=== PATIENT | male | born 2000 | race Caucasian/White ===

== ENCOUNTER → 2021-01-21 11:15 | Outpatient (BNVA) | payer OTHER, SELFPAY | PROVIDERS: Visit Provider Physician Assistant Medical | DX: S39.012A Strain of muscle, fascia and tendon of lower back, initial encounter (principal); X50.3XXA Overexertion from repetitive movements, initial encounter | CPT/HCPCS: 99203 ==

== ENCOUNTER → 2021-01-26 10:55 | Outpatient (BNVA) | payer OTHER, SELFPAY | PROVIDERS: Visit Provider Physician Assistant Medical | DX: S39.012A Strain of muscle, fascia and tendon of lower back, initial encounter (principal); X58.XXXA Exposure to other specified factors, initial encounter | CPT/HCPCS: 72100; 99214 ==

== ENCOUNTER → 2021-02-03 10:52 | Outpatient (BNVA) | payer OTHER, SELFPAY | PROVIDERS: Visit Provider Physician Assistant Medical | DX: S39.012A Strain of muscle, fascia and tendon of lower back, initial encounter (principal); X58.XXXA Exposure to other specified factors, initial encounter | CPT/HCPCS: 99213 ==

== ENCOUNTER → 2021-02-10 10:44 | Outpatient (BNVA) | payer OTHER, SELFPAY | PROVIDERS: Visit Provider Physician Assistant Medical | DX: S39.012D Strain of muscle, fascia and tendon of lower back, subsequent encounter (principal); X58.XXXD Exposure to other specified factors, subsequent encounter | CPT/HCPCS: 99213 ==

== ENCOUNTER → 2021-02-23 13:08 | Outpatient (BNVA) | payer OTHER, SELFPAY | PROVIDERS: Visit Provider Physician Assistant Medical | DX: S39.012D Strain of muscle, fascia and tendon of lower back, subsequent encounter (principal); S29.012D Strain of muscle and tendon of back wall of thorax, subsequent encounter; X58.XXXD Exposure to other specified factors, subsequent encounter | CPT/HCPCS: 99213 ==

== ENCOUNTER → 2021-03-03 12:50 | Outpatient (BNVA) | payer OTHER, SELFPAY | PROVIDERS: Visit Provider Physician Assistant Medical | DX: S29.012D Strain of muscle and tendon of back wall of thorax, subsequent encounter (principal); S39.012D Strain of muscle, fascia and tendon of lower back, subsequent encounter; X58.XXXD Exposure to other specified factors, subsequent encounter | CPT/HCPCS: 99213 ==

== ENCOUNTER → 2021-03-19 10:49 | Outpatient (BNVA) | payer OTHER, SELFPAY | PROVIDERS: Visit Provider Physician Assistant Medical | DX: S29.012D Strain of muscle and tendon of back wall of thorax, subsequent encounter (principal); S39.012D Strain of muscle, fascia and tendon of lower back, subsequent encounter; S16.1XXD Strain of muscle, fascia and tendon at neck level, subsequent encounter; S46.819D Strain of other muscles, fascia and tendons at shoulder and upper arm level, unspecified arm, subsequent encounter; X58.XXXD Exposure to other specified factors, subsequent encounter | CPT/HCPCS: 72072; 99214 ==

== ENCOUNTER 2021-03-19 12:00 | Outpatient (RCR) | payer OTHER, SELFPAY ==
--- NOTE | 2021-02-06 14:08 | MHC.PT.EP ---
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 FUNCTIONAL LIMITATIONS INCLUDE DECR SITTING, STANDING, WALKING > 1 HR, DRIVING > 25 MINUTES, MOVING FURNITURE, OR WORK TASKS- HE HAS BEEN OOW SINCE INJURY. Pt WOULD BENEFIT FROM PT TO ADDRESS THE ABOVE POSTURAL SYNDROME AND DEV HEP FOR SX MGMT. Frequency and Duration: The patient will be seen 2x WK x 4 WKS Short Term Goals: DECR Pt'S LS PAIN TO 2-3/10 W REG ADLS IN 2 WKS IMPROVE HIP/ TRUNK FLEXIB AND FUNCT SQUAT MECH IN 2 WKS Pt INDEP SELF-CORRECT POSTURE IN 1 WK Senior Care Goals: Pt INDEP HEP AND SX MGMT IN 4 WKS OSWESTRY SCORE IMPROVED BY AT LEAST 8 POINTS (AT EVAL 19/50) IN 4 WKS Pt DEMON 3:3 WORK OR ADL SIMUL W PROPER MECH IN 4WKS Treatment Plan: Modalities to reduce pain, spasms and effusion. Manual therapy to restore motion and function. Therapeutic exercise to improve strength and flexibility. Neuromuscular re-education for posture and balance. Therapeutic activities to return to functional activities of daily living. Electronically signed by: Rosanna Quintero,PT Please sign and return to therapist. Thank you for your referral.
== END 2021-05-22 07:17 | disposition home or self-care (01) ==
LOC: HO.PT 12:00
PROVIDERS: Visit Provider Physician Assistant Medical
DX: S39.012D Strain of muscle, fascia and tendon of lower back, subsequent encounter (principal); M62.830 Muscle spasm of back
CPT/HCPCS: 97110; 97112; 97140; 97161; 97530

== ENCOUNTER → 2021-03-31 10:29 | Outpatient (BNVA) | payer OTHER, SELFPAY | PROVIDERS: Visit Provider Physician Assistant Medical | DX: S29.012D Strain of muscle and tendon of back wall of thorax, subsequent encounter (principal); S39.012D Strain of muscle, fascia and tendon of lower back, subsequent encounter; X58.XXXD Exposure to other specified factors, subsequent encounter | CPT/HCPCS: 99213 ==